=== PATIENT | male | born 1940 | race Caucasian/White ===

== ENCOUNTER 2019-06-28 09:41 | Outpatient (CLI) | payer MEDICARE, SELFPAY ==
--- NOTE | ~2019-06-28 | NM_ITS ---
EXAMINATION: NM bone scan whole body DATE: 06/28/2019 14:08 INDICATION: Prostate cancer. TECHNIQUE: 24.5 mCi Tc-99m HDP was administered intravenously. Delayed whole-body scintigrams were o btained. COMPARISON: CT abdomen and pelvis 06/28/2019 FINDINGS: There are greater than 40 scattered lesions of increased activity in bone involving the spi ne, pelvis, ribs, sternum, right clavicle, and proximal femora correlating with sclerotic lesions by CT, consistent with metastatic disease. IMPRESSION: 1. Widespread osseous metastatic disease. Reviewed, dictated and finalized at location A. GER CONCRETE
--- NOTE | ~2019-06-28 | CT_ITS ---
EXAMINATION: CT abdomen pelvis w con EXAM DATE: 06/28/2019 10:24 INDICATION: Prostate cancer. TECHNIQUE: Spiral CT of the abdomen and pelvis was performed following intravenous injection of 100 m L Omnipaque 350. Axial, coronal and sagittal images were reviewed. The dose-length product (DLP) fo r this examination was 1379.65 mGy-cm. The exposure was tailored according to patient size (auto mA exposure control), and iterative reconstruction (ASIR) was used as additional dose reduction techniqu e. Comparison is made to prior examination from 04/17/2016. FINDINGS: Significant portion of the lungs were also imaged. There is mediastinal lymphadenopathy, wi th a precarinal lymph node measuring 1.0 x 1.2 cm, and other similar sized mediastinal and right scot r lymph nodes. Right hilar lymph node enhances heterogeneously. No central pulmonary emboli. There is pleural-based within nodular opacity at the left lung base, measuring about 3 mm in thickness by 13 mm in largest diameter. There are scattered regions of scarring. There is mild emphysema. The liver, spleen, adrenal glands and pancreas are unremarkable. Gallbladder appears severely contra cted with multiple gallstones. Portal and splenic veins are patent. Kidneys enhance symmetrically. There is no hydronephrosis. There is 5 mm right superior calyceal stone, smaller other bilateral kid prince stones. Multiple renal cysts, largest on the left measuring 4.4 cm. The very distal aspect of the left ureter has thickened wall, ureter measuring about 8 mm in diameter. There is moderate prostatom egaly. The bladder is unremarkable. There is a right-sided pelvic, iliac chain lymph node measuring 2.8 x 1.8 cm. Several borderline size left internal iliac lymph nodes as well. There are lower retroperitoneal borderline sized lymph node s. These are all larger than on previous examination, lymphadenopathy has developed. Small bilateral inguinal fat-containing hernias and small umbilical fat-containing hernia. The appendix is not positively visualized. There is no pericecal inflammatory change to suggest appe ndicitis. The stomach and small bowel are unremarkable. There is colonic fluid, correlate for diar joni. There is moderate sigmoid colonic diverticulosis. There is no adjacent inflammatory change to suggest diverticulitis. No free intraperitoneal gas. 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 IMPRESSION: 1. Interval development of mediastinal, right hilar, lower retroperitoneal and bilateral pelvic lymp hadenopathy, metastatic disease or lymphoma. 2. Interval development of thickened wall to the distal 1 cm of left ureter. Possible transitional c ell cancer or other malignancy. 3. Interval development of osteoblastic disease. 4. Bilateral nephrolithiasis. 5. Colonic fluid. 6. Lung opacities probably post infectious. 7. Mild emphysema. Reviewed, dictated and finalized at location B. M PRESS TENDER IMPRESSION: 1. Interval development of mediastinal, right hilar, lower retroperitoneal and bilateral pelvic lymphadenopathy, metastatic disease or lymphoma. 2. Interval development of thickened wall to the distal 1 cm of left ureter. P ossible transitional cell cancer or other malignancy. 3. Interval development of osteoblastic disease. 4. Bilateral nephrolithiasis. 5. Colonic fluid. 6. Lung opacities probably post infectious. 7. Mild emphysema.
[2019-06-28 10:21] LABS: Blood Urea Nitrogen 22 mg/dL (8-26); Estimated Glomerular Filt Rate > 60
== END 2019-06-28 09:42 | disposition home or self-care (01) ==
LOC: ANHIMG 09:42
PROVIDERS: PCP Urology; Visit Provider Urology
DX: C61 Malignant neoplasm of prostate (principal); C79.51 Secondary malignant neoplasm of bone; R59.0 Localized enlarged lymph nodes; N20.0 Calculus of kidney; R91.8 Other nonspecific abnormal finding of lung field; J43.9 Emphysema, unspecified
CPT/HCPCS: 74177; 78306; A9561; Q9967

== ENCOUNTER 2019-07-18 00:24 | Day surgery (SDC) | payer MEDICARE, SELFPAY ==
[2019-07-10 15:37] VITALS: BMI 33.0
[2019-07-18] VITALS (7 sets, daily range): BP systolic 145–166; BP diastolic 58–73; PULSE 55–65; RESP 15–23; TEMP 36.3–36.4; O2SAT 95–100
--- NOTE | ~2019-07-18 | XR_ITS ---
EXAMINATION: XR retrograde pyelogram LT DATE: 07/18/2019 15:18 PHOTOGRAPHIC PROCESS ATTENDANT INDICATION: Left retrograde pyelogram with ureteroscopy. TECHNIQUE: 4 fluoroscopic images from a left retrograde pyelogram are submitted for review. 10 second s of fluoroscopy. FINDINGS: Retrograde contrast administration into the left ureter demonstrates normal course and ángel jenn. No persistent filling defects are identified. Left renal pelvis and calyces have a normal appear ance. No strictures are identified. IMPRESSION: 1. Unremarkable left retrograde pyelogram.. Correlate with real time procedural findings for details . Reviewed, dictated and finalized at location A. OGRAPHIC PROCESS ATTENDANT IMPRESSION: 1. Unremarkable left retrograde pyelogram.. Correlate with real time procedura l findings for details.
--- NOTE | 2019-07-18 08:03 | WPDHPUPDATE1 ---
History and Physical Update Update Date/Time: 07/18/19 08:03 History and Physical has been reviewed, including an updated exam of the patient. There are NO changes in the patient's condition. Risks, benefits, and alternatives have been discussed and questions answered. Patient agrees to proceed with procedure.
--- NOTE | 2019-07-18 08:07 | WPDANESEPPF ---
Anes - Initial Pre Proc Eval Procedure: Operation Date: 07/18/19 09:30 Proposed Procedures p Cystoscopy, Left Ureteroscopy, Left Retrograde Pyelogram, - Sonny Khan MD s Possible Trans Urethral Incision Prostate - Sonny Khan MD Date/Time: 07/18/19 08:07 Surgeon: Sonny Khan MD Pre Op Diagnosis: Left ureter lesion, BPH Patient Data Age: 78 Gender: M Height: 5 ft 10 in Weight: 104.33 kg Allergies Allergy/AdvReac Type Severity Reaction Status Date / Time No Known Allergies Allergy Unverified 07/10/19 15:03 Home Medications Medication Instructions Recorded Confirmed Type alprazolam 0.25 mg PO TID PRN 07/10/19 07/10/19 History amlodipine 5 mg PO DAILY 07/10/19 07/10/19 History atenolol-chlorthalidone 1 tablet PO DAILY 07/10/19 07/10/19 History glipizide 10 mg PO BID 07/10/19 07/10/19 History metformin 1,000 mg PO BID 07/10/19 07/10/19 History pioglitazone 30 mg PO HS 07/10/19 07/10/19 History Patient hx anesthesia problems: none Family hx anesthesia problems: none PMFSH Past Medical History Medical History Anxiety Diabetes Hypertension Prostate CA Social History Social History Gender identity (if verbalized by the patient): Male Anes - Eval Final PreProcedure Day of Procedure 07/18/19 08:07 Patient weight: obese Heart: regular rate and rhythm Lungs: clear to auscultation Airway: Mallampati scale class II Neurological: alert and oriented Last oral intake: >/= 8 hours ASA classification: III Emergent: no Anesthetic plan: proceed Anesthesia type and monitoring: general LMA and standard monitoring Informed Consent: The patient's anesthetic plan and its attendant risks and benefits were discussed with the patient/family/POA. Questions were solicited and answers provided to the satisfaction of the patient/family/POA.
[2019-07-18] MEDS: LACTATED RINGERS 1,000 ML 30 ML IV CONT ×2 (08:15→09:54)
[2019-07-18] MEDS: MIDAZOLAM HCL 2 MG/2 ML VIAL 1 MG IV PUSH (08:20)
[2019-07-18 08:23] LABS: Glucose Point of Care 171 (65-105)
[2019-07-18] MEDS: ceFAZolin 2 GM/D5W 50 ML 2 GM/50 ML BAG IVPB (09:09)
[2019-07-18] MEDS: LIDOCAINE HCL 2% GEL UROJET 10 ML PKG MUCOUS MEM (09:29)
--- NOTE | 2019-07-18 09:39 | P.OP_ITS ---
Procedure Note - Detailed Date of procedure: 07/18/19 Pre-op diagnosis: Left ureter lesion, BPH Post-op diagnosis: other (Normal appearing left ureter without evidence of irregularity) Procedure performed: Cystoscopy, left retrograde pyelogram, left ureteroscopy, Description of procedure: Patient was taken to the operative suite and correctly identified. Once general anesthesia was obtained he was placed in the dorsal lithotomy position and prepped and draped in the usual sterile fashion. A 19 [place]ic cystoscope sheath was inserted into the bladder direct vision. There are no urethral lesions noted prostate has some mild lateral lobe hypertrophy. The bladder itself is 2 to 3+ trabeculation. There are no tumors noted. Left ureteral orifice was visualized and there is no apparent abnormalities seen at this point. A Abie was inserted into the left ureteral orifice and retrograde pyelogram was performed. The ureter appeared pristine in nature without any evidence of filling defects. Given the radiologic findings we did p lace a rigid ureteral scope into the orifice. Again there was no abnormalities noted at this point time. The distal mid and proximal ureter appeared normal in appearance. Bladder was drained. 2% viscous lidocaine was inserted into the urethra and he was taken recovery room in stable condition. Anesthesia: GLMA Surgeon: Sonny Khan MD Drains: No Packing: No Pathology: none sent Complications: No immediate complications Condition: stable Disposition: PACU
[2019-07-18 10:21] LABS: Glucose Point of Care 139 (65-105)
== END 2019-07-18 11:10 | disposition home or self-care (01) ==
PROVIDERS: Visit Provider Urology
PROC: (CPT 52352; principal; 2019-07-18 09:30)
DX: N32.89 Other specified disorders of bladder (principal); N40.0 Benign prostatic hyperplasia without lower urinary tract symptoms; I10 Essential (primary) hypertension; E11.9 Type 2 diabetes mellitus without complications; F41.9 Anxiety disorder, unspecified; Z85.46 Personal history of malignant neoplasm of prostate; Z79.84 Long term (current) use of oral hypoglycemic drugs; E66.9 Obesity, unspecified; Z68.32 Body mass index [BMI] 32.0-32.9, adult
CPT/HCPCS: 52005; 74420; A9270; C1758; C1769; J0690; J1100; J2250; J2405; J2704; J3010; J7120; Q9966